=== PATIENT | male | born 1995 | race Caucasian/White ===

== ENCOUNTER 2021-02-01 02:33 | Emergency (ER) | payer OTHER ==
[~2021-02-01] VITALS: Ht 190.5 cm; Wt 75.0 kg
--- NOTE | 2021-02-01 02:43 | NUR ---
PT PRESENTS TO ER FOR ACID REFLUX FOR THE LAST 16 HOURS AND STATES HE HASNT BEEN ABLE TO HOLD ANYTHING DOWN, PT EXPERIENCING HEADACHE, DIZZINESS, AND N/V
[2021-02-01] MEDS ORDERED: ONDANSETRON ODT 4 MG ONE (02:51)
[2021-02-01] MEDS ORDERED: MAALOX/HYOSCYAMINE/LIDOCAINE 45 ML BTL ONE ×2 (02:51→04:04)
[2021-02-01] MEDS ORDERED: MAALOX/HYOSCYAMINE/LIDOCAINE 45 ML BTL PO ONE (03:00)
[2021-02-01] MEDS ORDERED: ONDANSETRON ODT 4 MG PO ONE (03:00)
[2021-02-01 03:12] LABS: BASOPHILS % (AUTO) 0 % (0-1); EOSINOPHILS % (AUTO) 0 % (1-7); LYMPHOCYTES % (AUTO) 13 % (22-44); MEAN CORPUSCULAR HEMOGLOBIN 30.6 pg (27.5-34.5); MEAN CORPUSCULAR HGB CONC 34.2 g/dL (33.2-36.2); MEAN PLATELET VOLUME 8.2 fL (7.4-10.4); MONOCYTES % (AUTO) 7 % (2-9); NEUTROPHILS % (AUTO) 79 % (42-75); PLATELET COUNT 288 x10^3/uL (130-400); RED BLOOD COUNT 5.55 x10^6/uL (4.38-5.82); RED CELL DISTRIBUTION WIDTH 13.3 % (9.4-14.8)
[2021-02-01] MEDS ORDERED: ONDANSETRON 2MG/ML, 2ML ONE (03:16)
[2021-02-01] MEDS ORDERED: FAMOTIDINE 20 MG/2 ML ONE (03:17)
[2021-02-01 03:23] LABS: ALANINE AMINOTRANSFERASE 37 U/L (12-78); ALBUMIN 4.6 g/dL (3.4-5.0); ANION GAP 6 mmol/L (5-15); CALCIUM 9.5 mg/dL (8.5-10.1); CHLORIDE 107 mmol/L (98-107); CREATININE 1.08 mg/dL (0.7-1.3)
[2021-02-01 03:25] LABS: ALKALINE PHOSPHATASE 72 U/L (45-117); BILIRUBIN,TOTAL 0.8 mg/dL (0.2-1.0); TOTAL PROTEIN 8.6 g/dL (6.4-8.2)
--- NOTE | 2021-02-01 03:26 | NUR ---
PT IMMEDIATELY VOMITTED THE PO ZOFRAN AND GI COCKTAIL THAT WAS GIVEN, PROVIDER NOTIFIED AND ORDERED AN IV WITH FLUIDS AND IV MEDICATIONS, THIS RN CARRIED OUT PROVIDERS ORDERS
[2021-02-01] MEDS ORDERED: SODIUM CHLORIDE FLUSH 10ML SYR IVF ONE (03:30)
[2021-02-01] MEDS ORDERED: ONDANSETRON 2MG/ML, 2ML IVPush ONE (03:30)
[2021-02-01] MEDS ORDERED: FAMOTIDINE 20 MG/2 ML IVPush ONE (03:30)
[2021-02-01] MEDS ORDERED: SODIUM CHLORIDE 0.9% 1,000ML IVBOLUS ONE (03:30)
[2021-02-01] MEDS ORDERED: PROPOFOL 10 MG/ML, 20ML ONE ×2 (04:57→05:35)
--- NOTE | 2021-02-01 05:08 | NUR ---
Report received from HARRY Barron. This RN to assume care. Patient to be sedated for endoscopy.
[2021-02-01 06:28] VITALS: BP 126/78
--- NOTE | 2021-02-01 06:32 | NUR ---
Patient sedated. Endoscopy performed without incident. Patient recovered from sedation well. Discharge instructions given. All questions and concerns addressed. Patient ambulatory with a steady gait. Belongings with patient.
== END 2021-02-01 06:36 | disposition home or self-care (01) ==
LOC: ED 02:45
DX: T18.128A Food in esophagus causing other injury, initial encounter (principal); K21.00 Gastro-esophageal reflux disease with esophagitis, without bleeding; R11.2 Nausea with vomiting, unspecified; X58.XXXA Exposure to other specified factors, initial encounter; Y93.89 Activity, other specified; Y92.89 Other specified places as the place of occurrence of the external cause; Y99.8 Other external cause status
CPT/HCPCS: 36415; 43247; 80053; 83690; 85025; 93005; 96361; 96374; 96375; 99285; J2405; J7030; Q0162